=== PATIENT | female | born 2000 | race Caucasian/White ===

== ENCOUNTER → 2018-09-20 | Outpatient (CLI) | payer OTHER | LOC: RAD 14:33 | DX: M25.531 Pain in right wrist (principal); M79.671 Pain in right foot; M79.672 Pain in left foot ==

== ENCOUNTER 2019-07-27 15:15 | Emergency (ER) | payer OTHER ==
[~2019-07-27] VITALS: Ht 167.6 cm; Wt 52.2 kg
[2019-07-27 15:18] VITALS: BP 95/59
[2019-07-27] MEDS ORDERED: MOMETASONE FURO17 GM NASAL (15:31)
[2019-07-27] MEDS ORDERED: SPRINTEC1 EACH PO (15:31)
[2019-07-27] MEDS ORDERED: AZELASTINE137 MCG/0. NASAL (15:32)
[2019-07-27] MEDS ORDERED: SYMBICORT160 MCG/4. (15:33)
[2019-07-27] MEDS ORDERED: XOPENEX0.63 MG/3 INH (15:34)
[2019-07-27] MEDS ORDERED: MUCINEX600 MG PO (15:35)
[2019-07-27] MEDS ORDERED: DELSYM30 MG/5 M1 PO (15:35)
[2019-07-27 16:42] LABS: ABSOLUTE NEUTROPHILS 4.6 thou/uL (1.4-8.2); BASOPHILS 0.3 % (0.0-2.0); EOSINOPHILS 0.6 % (0.0-3.0); HEMATOCRIT 33.4 % (37.0-47.0); HEMOGLOBIN 10.9 gm/dL (12.0-15.0); MCHC 32.7 g/dL (28.0-37.0); MCV 88.5 fL (80.0-100.0); MONOCYTES 4.5 % (1.0-8.0); PLATELET COUNT 294 thou/uL (150-400); POLYS 74.6 % (36.0-66.0); RBC 3.77 mil/uL (4.20-5.00); RDW 14.3 % (10.5-14.5); WBC 6.1 thou/uL (4.0-11.0)
[2019-07-27 16:50] LABS: CALCIUM 9.3 mg/dL (8.5-10.1); CREATININE 0.6 mg/dL (0.6-1.0); POTASSIUM 3.9 mmol/L (3.5-5.1)
[2019-07-27] MEDS ORDERED: EPIPEN0.3 MG/0.1 IM (17:36)
[2019-07-27] MEDS ORDERED: DECADRON6 MG PO (17:36)
[2019-07-27] MEDS ORDERED: ZANTAC 150MG T150 MG PO (17:36)
== END 2019-07-27 19:18 | disposition home or self-care (01) ==
LOC: ER 15:15
PROVIDERS: Nurse Practitioner Family
DX: J45.901 Unspecified asthma with (acute) exacerbation (principal); D64.9 Anemia, unspecified; L50.9 Urticaria, unspecified; R05 Cough; T78.40XA Allergy, unspecified, initial encounter; Z90.49 Acquired absence of other specified parts of digestive tract; Z88.6 Allergy status to analgesic agent; Z88.8 Allergy status to other drugs, medicaments and biological substances; Z88.1 Allergy status to other antibiotic agents; X58.XXXA Exposure to other specified factors, initial encounter

== ENCOUNTER 2020-01-19 21:52 | Emergency (ER) | payer OTHER ==
[~2020-01-19] VITALS: Ht 167.6 cm; Wt 54.4 kg
[~2020-01-19 21:52] MED LIST: AZELASTINE137 MCG/0. NASAL; DECADRON6 MG PO; DELSYM30 MG/5 M1 PO; EPIPEN0.3 MG/0.1 IM; MOMETASONE FURO17 GM NASAL; MUCINEX600 MG PO; SPRINTEC1 EACH PO; SYMBICORT160 MCG/4.; XOPENEX0.63 MG/3 INH; ZANTAC 150MG T150 MG PO
[2020-01-19] MEDS ORDERED: ABILIFY 2 MG2 M1 PO (22:04)
[2020-01-19] MEDS ORDERED: MEDROLDOSEPACK PO (23:25)
[2020-01-19 23:47] VITALS: BP 119/61
== END 2020-01-19 23:45 | disposition home or self-care (01) ==
LOC: ER 21:52
DX: J45.901 Unspecified asthma with (acute) exacerbation (principal); Z79.899 Other long term (current) drug therapy; Z88.1 Allergy status to other antibiotic agents; Z88.8 Allergy status to other drugs, medicaments and biological substances

== ENCOUNTER → 2020-04-19 | Outpatient (CLI) | payer OTHER ==
[~2020-04-19] MED LIST changes: +ABILIFY 2 MG2 M1 PO; +MEDROLDOSEPACK PO
[2020-04-19 14:21] LABS: ABSOLUTE NEUTROPHILS 1.9 thou/uL (1.4-8.2); BASOPHILS 0.5 % (0.0-2.0); EOSINOPHILS 2.9 % (0.0-3.0); HEMATOCRIT 38.7 % (37.0-47.0); HEMOGLOBIN 13.1 gm/dL (12.0-15.0); LYMPHOCYTES 36.9 % (24.0-44.0); MCH 30.5 pg (26.0-34.0); MCHC 33.8 g/dL (28.0-37.0); MCV 90.4 fL (80.0-100.0); MONOCYTES 6.1 % (1.0-8.0); PLATELET COUNT 211 thou/uL (150-400); POLYS 53.6 % (36.0-66.0); RBC 4.28 mil/uL (4.20-5.00); RDW 14.8 % (10.5-14.5); WBC 3.5 thou/uL (4.0-11.0)
[2020-04-19 14:31] LABS: % SATURATION 16 % (20-39); IRON 61 ug/dL (50-170); TIBC 373 ug/dL (250-450)
[2020-04-19 14:58] LABS: FERRITIN 16 ng/mL (8-252)
== END ==
LOC: LAB 13:31
DX: D64.9 Anemia, unspecified (principal)

== ENCOUNTER → 2020-08-09 | Outpatient (CLI) | payer OTHER ==
[2020-08-09 12:51] LABS: ABSOLUTE NEUTROPHILS 2.4 thou/uL (1.4-8.2); BASOPHILS 0.8 % (0.0-2.0); EOSINOPHILS 1.6 % (0.0-3.0); HEMATOCRIT 35.9 % (37.0-47.0); HEMOGLOBIN 12.1 gm/dL (12.0-15.0); MCH 29.8 pg (26.0-34.0); MCHC 33.8 g/dL (28.0-37.0); MCV 88.1 fL (80.0-100.0); MONOCYTES 6.9 % (1.0-8.0); PLATELET COUNT 241 thou/uL (150-400); POLYS 57.7 % (36.0-66.0); RBC 4.07 mil/uL (4.20-5.00); RDW 13.8 % (10.5-14.5); WBC 4.2 thou/uL (4.0-11.0)
[2020-08-09 13:01] LABS: ALBUMIN 4.6 g/dL (3.4-5.0); CALCIUM 9.5 mg/dL (8.5-10.1); CREATININE 0.8 mg/dL (0.6-1.0); TOTAL BILIRUBIN 0.3 mg/dL (0.2-1.0); TOTAL PROTEIN 8.1 g/dL (6.4-8.2)
== END ==
LOC: LAB 11:51
PROVIDERS: ATTEND Nurse Practitioner
DX: R10.13 Epigastric pain (principal); F41.9 Anxiety disorder, unspecified

== ENCOUNTER → 2020-09-06 | Outpatient (CLI) | payer OTHER | LOC: LAB 14:45 | PROVIDERS: ATTEND Internal Medicine | DX: Z20.828 Contact with and (suspected) exposure to other viral communicable diseases (principal) ==

== ENCOUNTER → 2020-10-16 | Outpatient (CLI) | payer OTHER | LOC: RAD 09:40 | PROVIDERS: ATTEND Nurse Practitioner | DX: R19.5 Other fecal abnormalities (principal); R14.0 Abdominal distension (gaseous) ==

== ENCOUNTER → 2021-02-17 | Outpatient (CLI) | payer OTHER | LOC: LAB 12:29 | PROVIDERS: ATTEND Psychiatry & Neurology Psychiatry | DX: F39 Unspecified mood [affective] disorder (principal) ==

== ENCOUNTER 2021-06-18 19:44 | Emergency (ER) | payer OTHER ==
[~2021-06-18] VITALS: Ht 167.6 cm; Wt 56.7 kg
[2021-06-18 20:54] LABS: ABSOLUTE NEUTROPHILS 4.3 thou/uL (1.4-8.2); BASOPHILS 0.4 % (0.0-2.0); EOSINOPHILS 1.2 % (0.0-3.0); HEMATOCRIT 35.9 % (37.0-47.0); HEMOGLOBIN 11.8 gm/dL (12.0-15.0); LYMPHOCYTES 19.8 % (24.0-44.0); MCH 29.5 pg (26.0-34.0); MCV 89.6 fL (80.0-100.0); MONOCYTES 4.5 % (1.0-8.0); PLATELET COUNT 220 thou/uL (150-400); POLYS 74.1 % (36.0-66.0); RBC 4.01 mil/uL (4.20-5.00); RDW 14.1 % (10.5-14.5); WBC 5.8 thou/uL (4.0-11.0)
[2021-06-18 21:07] LABS: CREATININE 0.7 mg/dL (0.6-1.0); POTASSIUM 3.6 mmol/L (3.5-5.1)
[2021-06-18 21:12] LABS: ALBUMIN 4.3 g/dL (3.4-5.0); TOTAL BILIRUBIN 0.6 mg/dL (0.2-1.0); TOTAL PROTEIN 7.6 g/dL (6.4-8.2)
[2021-06-18 21:37] LABS: URINE BILIRUBIN NEGATIVE (Negative); URINE BLOOD NEGATIVE (Negative); URINE CLARITY CLEAR; URINE COLOR YELLOW; URINE GLUCOSE-RANDOM* NEGATIVE (Negative); URINE KETONES NEGATIVE (Negative); URINE NITRITE-REFLEX NEGATIVE (Negative); URINE PROTEIN (DIPSTICK) NEGATIVE (Negative); URINE SPECIFIC GRAVITY <= 1.005 (1.005-1.035); URINE UROBILINOGEN 0.2 E.U./dl (0.2-1.0)
[2021-06-18 21:41] LABS: URINE LEUKOCYTES-REFLEX 1+ (Negative)
[2021-06-18 22:10] LABS: CASTS None Seen /LPF (None Seen); CRYSTALS None Seen /LPF (None Seen); MUCUS 0-3 Light strn/LPF (None Seen); SQUAMOUS 4-10 Moderate /LPF (0-3); URINE RBC 1-2 Rare /HPF (NONE SEEN); URINE WBC-REFLEX 6-15 Few /HPF (0-5)
[2021-06-18 22:28] VITALS: BP 111/75
== END 2021-06-18 22:30 | disposition home or self-care (01) ==
LOC: ER 19:44
PROVIDERS: Physician Assistant
DX: D64.9 Anemia, unspecified (principal); R53.83 Other fatigue; J45.909 Unspecified asthma, uncomplicated; Z79.899 Other long term (current) drug therapy; Z88.1 Allergy status to other antibiotic agents; Z88.8 Allergy status to other drugs, medicaments and biological substances; Z88.6 Allergy status to analgesic agent

== ENCOUNTER 2021-09-11 15:05 | Emergency (ER) | payer OTHER ==
[~2021-09-11] VITALS: Ht 167.6 cm; Wt 54.4 kg
[2021-09-11 15:42] LABS: ABSOLUTE NEUTROPHILS 4.7 thou/uL (1.4-8.2); BASOPHILS 0.4 % (0.0-2.0); EOSINOPHILS 0.2 % (0.0-3.0); HEMATOCRIT 36.3 % (37.0-47.0); LYMPHOCYTES 20.7 % (24.0-44.0); MCH 29.1 pg (26.0-34.0); MCHC 33.1 g/dL (28.0-37.0); MONOCYTES 4.5 % (1.0-8.0); PLATELET COUNT 208 thou/uL (150-400); POLYS 74.2 % (36.0-66.0); RBC 4.12 mil/uL (4.20-5.00); WBC 6.4 thou/uL (4.0-11.0)
[2021-09-11 15:55] LABS: CALCIUM 9.4 mg/dL (8.5-10.1); CREATININE 0.8 mg/dL (0.6-1.0); POTASSIUM 3.2 mmol/L (3.5-5.1)
[2021-09-11 15:56] LABS: URINE BILIRUBIN NEGATIVE (Negative); URINE CLARITY CLEAR; URINE COLOR YELLOW; URINE GLUCOSE-RANDOM* NEGATIVE (Negative); URINE PROTEIN (DIPSTICK) NEGATIVE (Negative)
[2021-09-11 15:57] LABS: URINE BLOOD NEGATIVE (Negative); URINE KETONES 2+ (Negative); URINE LEUKOCYTES-REFLEX NEGATIVE (Negative); URINE NITRITE-REFLEX NEGATIVE (Negative); URINE UROBILINOGEN 0.2 E.U./dl (0.2-1.0)
[2021-09-11 16:01] LABS: ALBUMIN 4.6 g/dL (3.4-5.0); TOTAL BILIRUBIN 0.6 mg/dL (0.2-1.0); TOTAL PROTEIN 8.2 g/dL (6.4-8.2)
[2021-09-11] MEDS ORDERED: PROAIR HFA8.5 GM INH (18:00)
[2021-09-11] MEDS ORDERED: ADDERALL 5 MG TA5 M1 PO (18:00)
[2021-09-11] MEDS ORDERED: SPIRIVA RESPIMAT4 G1 IH (18:01)
[2021-09-11] MEDS ORDERED: TRAMADOL 50 MG50 MG PO (20:05)
[2021-09-11] MEDS ORDERED: ZOFRAN ODT4 MG PO (20:34)
[2021-09-11 21:02] VITALS: BP 108/63
== END 2021-09-11 21:05 | disposition home or self-care (01) ==
LOC: ER 15:05
PROVIDERS: Student in an Organized Health Care Education/Training Program
DX: N83.201 Unspecified ovarian cyst, right side (principal); J45.909 Unspecified asthma, uncomplicated; Z90.89 Acquired absence of other organs; Z79.51 Long term (current) use of inhaled steroids; Z79.891 Long term (current) use of opiate analgesic; Z79.899 Other long term (current) drug therapy; Z88.1 Allergy status to other antibiotic agents; Z88.6 Allergy status to analgesic agent; Z88.8 Allergy status to other drugs, medicaments and biological substances

== ENCOUNTER → 2021-10-10 | Outpatient (CLI) | payer OTHER ==
[~2021-10-10] MED LIST changes: +ADDERALL 5 MG TA5 M1 PO; +PROAIR HFA8.5 GM INH; +SPIRIVA RESPIMAT4 G1 IH; +TRAMADOL 50 MG50 MG PO; +ZOFRAN ODT4 MG PO
== END ==
LOC: ULTRA 12:35
PROVIDERS: ATTEND Internal Medicine
DX: N88.8 Other specified noninflammatory disorders of cervix uteri (principal); Z86.2 Personal history of diseases of the blood and blood-forming organs and certain disorders involving the immune mechanism